=== PATIENT | male | born 1965 | race Hispanic/Latino ===

== ENCOUNTER 2021-07-23 14:38 | Emergency (ER) | payer SELFPAY ==
--- NOTE | 2021-07-23 17:15 | XRay Report ---
CHEST 2 VIEWS INDICATION / CLINICAL INFORMATION: eval for pulm edema. COMPARISON: None available. FINDINGS: SUPPORT DEVICES: None. HEART / MEDIASTINUM: No significant abnormality. LUNGS / PLEURA: No significant pulmonary or pleural abnormality. No pneumothorax. ADDITIONAL FINDINGS: No significant additional findings. IMPRESSION: 1. No acute findings. Signer Name: Paulie Sanchez MD Signed: 07/23/2021 5:10 PM Workstation Name: [id number]
[2021-07-23 17:33] LABS: Basophils # (Auto) 0.1 K/mm3 (0.0-0.1); Basophils % (Auto) 0.6 % (0.0-1.8); Eosinophils # (Auto) 0.2 K/mm3 (0.0-0.4); Eosinophils % (Auto) 1.6 % (0.0-4.3); Hematocrit 45.7 % (35.5-45.6); Hemoglobin 14.8 gm/dl (11.8-15.2); Lymphocytes # (Auto) 2.2 K/mm3 (1.2-5.4); Lymphocytes % (Auto) 22.5 % (13.4-35.0); Mean Corpuscular HGB Conc 33 % (32-34); Mean Corpuscular Volume 87 fl (84-94); Monocytes # (Auto) 0.6 K/mm3 (0.0-0.8); Monocytes % (Auto) 6.1 % (0.0-7.3); Platelet Count 223 K/mm3 (140-440); Red Blood Count 5.26 M/mm3 (3.65-5.03); Red Cell Distribution Width 14.2 % (13.2-15.2)
[2021-07-23 17:45] LABS: Alanine Aminotransferase 19 units/L (7-56); Albumin 3.2 g/dL (3.9-5); BUN/Creatinine Ratio 14; Blood Urea Nitrogen 24 mg/dL (9-20); Calcium 8.5 mg/dL (8.4-10.2); Hemolysis Index 16
[2021-07-23 17:56] LABS: Chol/HDL Ratio 5.12 %; HDL Cholesterol 40 mg/dL (40-59); LDL Cholesterol,Direct TNR mg/dL (50-130)
--- NOTE | 2021-07-23 17:56 | Emergency Department Report ---
ED Dizziness HPI - General Chief Complaint: Dizziness Stated Complaint: DIZZINESS Time Seen by Provider: 07/23/21 16:09 Source: patient, EMS Mode of arrival: Stretcher Limitations: No Limitations - History of Present Illness Initial Comments: 6-year-old male here with complaint possible panic attack. Patient states that while he was typing on a computer very anxious panicked developed numbness and tingling in his hands had a short episode of some shortness of breath. He denies any complaints now and states he feels improved. He states he knows his blood sugar is elevated as he was eating rice with his grandchildren. He denies any chest pain or shortness of breath at this time and also states that he has no numbness or tingling at this time. He has had right leg swelling for a while and notes history of prior bilateral DVTs and states he has been off Eliquis for some months. He notes his right leg has been swollen for over a month. - Related Data Previous Rx's Medication Instructions Recorded Last Taken Type Apixaban [Eliquis] 5 mg PO BID 30 Days #73 tablet 07/23/21 Unknown Rx metFORMIN [Glucophage] 500 mg PO BID 30 Days #60 tablet 07/23/21 Unknown Rx Allergies Allergy/AdvReac Type Severity Reaction Status Date / Time amlodipine Allergy Swelling Verified 07/23/21 16:25 amoxicillin Allergy Unknown Verified 07/23/21 14:44 insulin detemir Allergy Rash Verified 07/23/21 16:25 ED Review of Systems ROS: Stated complaint: DIZZINESS Other details as noted in HPI Constitutional: denies: chills, fever Eyes: denies: eye pain, eye discharge, vision change ENT: denies: ear pain, throat pain Respiratory: denies: cough, shortness of breath, wheezing Cardiovascular: denies: chest pain, palpitations Endocrine: no symptoms reported Gastrointestinal: denies: abdominal pain, nausea, diarrhea Genitourinary: denies: urgency, dysuria Musculoskeletal: as per HPI Skin: denies: rash, lesions Neurological: numbness, paresthesias. denies: headache, weakness Psychiatric: denies: anxiety, depression Hematological/Lymphatic: denies: easy bleeding, easy bruising ED Past Medical Hx - Past Medical History Previous Medical History?: Yes Hx Hypertension: Yes Hx Diabetes: Yes Hx COPD: Yes Additional medical history: ANXIETY, SLEEP APNEA, BLOOD CLOTS - Social History Smoking Status: Former Smoker Substance Use Type: Marijuana - Medications Home Medications: Home Medications Medication Instructions Recorded Confirmed Last Taken Type Apixaban [Eliquis] 5 mg PO BID 30 Days #73 tablet 07/23/21 Unknown Rx metFORMIN [Glucophage] 500 mg PO BID 30 Days #60 tablet 07/23/21 Unknown Rx ED Physical Exam - General Limitations: No Limitations General appearance: alert, in no apparent distress - Head Head exam: Present: atraumatic, normocephalic - Eye Eye exam: Present: normal appearance - ENT ENT exam: Present: mucous membranes moist - Neck Neck exam: Present: normal inspection - Respiratory Respiratory exam: Present: normal lung sounds bilaterally. Absent: respiratory distress - Cardiovascular Cardiovascular Exam: Present: regular rate, normal rhythm. Absent: systolic murmur, diastolic murmur, rubs, gallop - GI/Abdominal GI/Abdominal exam: Present: soft, normal bowel sounds - Rectal Rectal exam: Present: deferred - Extremities Exam Extremities exam: Present: other (Lower extremity edema worse on the right than the left) - Back Exam Back exam: Present: normal inspection - Neurological Exam Neurological exam: Present: alert, oriented X3 - Psychiatric Psychiatric exam: Present: normal affect, normal mood - Skin Skin exam: Present: warm, dry, intact, normal color ED Course Vital Signs 07/23/21 07/23/21 07/23/21 14:40 14:43 16:31 Temperature 97.3 F L 98.6 F Pulse Rate 105 H Respiratory 18 Rate Blood Pressure Blood Pressure 175/115 [Left] Blood Pressure [Right] O2 Sat by Pulse 97 97 Oximetry 07/23/21 07/23/21 07/23/21 16:34 16:36 16:46 Temperature Pulse Rate 94 H 96 H Respiratory 25 H 22 Rate Blood Pressure 193/124 Blood Pressure [Left] Blood Pressure 193/124 [Right] O2 Sat by Pulse 96 96 96 Oximetry 07/23/21 07/23/21 07/23/21 17:00 18:17 18:30 Temperature Pulse Rate 105 H 94 H Respiratory 27 H 22 Rate Blood Pressure 193/124 189/115 179/119 Blood Pressure [Left] Blood Pressure [Right] O2 Sat by Pulse 97 97 96 Oximetry 07/23/21 07/23/21 07/23/21 18:46 20:50 22:18 Temperature Pulse Rate 93 H 119 H 111 H Respiratory 25 H 19 18 Rate Blood Pressure 179/119 Blood Pressure [Left] Blood Pressure 172/108 173/116 [Right] O2 Sat by Pulse 97 95 92 Oximetry 07/23/21 23:20 Temperature Pulse Rate 100 H Respiratory 18 Rate Blood Pressure Blood Pressure [Left] Blood Pressure 154/82 [Right] O2 Sat by Pulse 95 Oximetry - Reevaluation(s) Reevaluation #1: 07/23/21 18:03 And is noted to have a DVT that appears chronic from the femoral to the lower vein. 07/23/21 23:29 Patient DVT is chronic as he does note that he had previous DVT in the leg in the same distribution as current. Patient was given some fluids and mag for mild tachycardia his heart rate has improved and EKG no longer shows prolonged QTC. Given this plan to discharge with Metformin Eliquis and patient follow-up with primary care in a few days ED Medical Decision Making - Lab Data Result diagrams: 07/23/21 17:01 07/23/21 19:38 - EKG Data -: EKG Interpreted by Me Rate: tachycardia No standard instances Heart block present: 1st Degree Qtc: prolonged - EKG Data 07/23/21 23:39 P EKG performed at 2314 demonstrates sinus tachycardia at 104 with prolonged NC but no longer having prolonged QTC. - Radiology Data Radiology results: report reviewed, image reviewed - Medical Decision Making 56-year-old male here with complaint of numbness and tingling in his hands. This has resolved plan for further work-up for lower leg swelling, dizziness will obtain basic labs chest x-ray and reassess. Critical care attestation.: If time is entered above; I have spent that time in minutes in the direct care of this critically ill patient, excluding procedure time. ED Disposition Clinical Impression: Paresthesia and pain of both upper extremities, Hyperglycemia, DVT (deep venous thrombosis) Disposition: 01 HOME / SELF CARE / HOMELESS Is pt being admited?: No Does the pt Need Aspirin: No Condition: Stable Instructions: Paresthesia, Hyperglycemia, Kaqa-ao-Vust, Deep Vein Thrombosis Additional Instructions: Please call Dr. Latham's office if you need a Primary care doctor. If any of your symptoms worsen or return please come back to the ER. Prescriptions: Apixaban [Eliquis] 5 mg PO BID 30 Days #73 tablet metFORMIN [Glucophage] 500 mg PO BID 30 Days #60 tablet Referrals: PRIMARY CAREMD [Primary Care Provider] - 3-5 Days ROSY LATHAM MD [Referring] - 3-5 Days Time of Disposition: 23:36
--- NOTE | 2021-07-23 18:12 | Vascular Lab Report ---
DUPLEX DOPPLER LOWER EXTREMITY VEINS, RIGHT INDICATION / CLINICAL INFORMATION: hx of dvt; off eliquis. TECHNIQUE: Duplex doppler imaging was performed through the veins of the right lower extremity using venous comp ression and other maneuvers. COMPARISON: None available. FINDINGS: RIGHT COMMON FEMORAL VEIN: Nonocclusive. RIGHT FEMORAL VEIN: Nonocclusive. RIGHT POPLITEAL VEIN: Nonocclusive. RIGHT CALF VEINS: Not visualized. ADDITIONAL FINDINGS: None. IMPRESSION: 1. Nonocclusive right lower extremity DVT. This is most likely chronic. No occlusive DVT is seen. Signer Name: Jeremy Mesa MD Signed: 07/23/2021 6:07 PM Workstation Name: [id number]
--- NOTE | 2021-07-23 18:34 | Cat Scan Report ---
CT HEAD WITHOUT CONTRAST INDICATION / CLINICAL INFORMATION: dizziness; numbness. TECHNIQUE: All CT scans at this location are performed using CT dose reduction for ALARA by means of automated e xposure control. COMPARISON: None available. FINDINGS: HEMORRHAGE: No evidence of intracranial hemorrhage or extra-axial fluid collection. EXTRA-AXIAL SPACES: Cortical sulci, sylvian fissures and basilar cisterns have an unremarkable appear ance. VENTRICULAR SYSTEM: The third and lateral ventricles are of normal size and configuration. CEREBRAL PARENCHYMA: Small focus of decreased brain parenchymal attenuation the region of the anterio r limb of the internal capsule on the left could represent a dilated perivascular space or remote sma ll deep infarction. Brain parenchymal attenuation is otherwise normally maintained. MIDLINE SHIFT OR HERNIATION: There is no mass effect. CEREBELLUM / BRAINSTEM: Brainstem and cerebellum have an unremarkable appearance. MIDLINE STRUCTURES:No abnormalities of the pituitary gland or pineal region are identified. INTRACRANIAL VESSELS: Calcified atherosclerotic plaque is observed along the course of the cavernous segments of both internal carotid arteries as well as at the distal left vertebral artery. This is a manifestation of premature intercranial atherosclerosis in this 56-year-old individual. ORBITS: visualized portions of the orbits have an unremarkable appearance. SOFT TISSUES of HEAD: No significant abnormality. CALVARIUM: Evaluation of bone windows reveals no abnormalities. PARANASAL SINUSES / MASTOID AIR CELLS: Visualized portions of the paranasal sinuses are free from inf lammatory mucosal disease. Mastoid air cells are normally pneumatized. ADDITIONAL FINDINGS: None. IMPRESSION: 1. No acute intracranial abnormality. 2. There is evidence of intracranial atherosclerotic disease manifest by calcified plaque along the c ourse of the internal carotid arteries and at the distal left vertebral artery. 3. dilated perivascular space versus remote small deep infarction anterior limb internal capsule on t he left. Signer Name: Maycol Ramírez MD Signed: 07/23/2021 6:30 PM Workstation Name: [id number]
[2021-07-23] MEDS ORDERED: APIXABAN 5 MG TAB PO ONE (19:35)
[2021-07-23 19:57] LABS: INR 0.93 (0.87-1.13)
[2021-07-23 19:58] LABS: Partial Thromboplastin Time 27.5 Sec. (24.2-36.6)
[2021-07-23] MEDS ORDERED: MAGNESIUM SULFATE 1 GM in SODIUM CHLORIDE 0.9% 50 ML IV ONE (20:45)
[2021-07-23] MEDS ORDERED: SODIUM CHLORIDE 0.9% 500 ML 500 ML IV ONE (20:45)
[2021-07-23 23:21] VITALS: BP 154/82
--- NOTE | 2021-07-24 17:33 | Electrocardiograph Report ---
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
--- NOTE | 2021-07-24 17:34 | Electrocardiograph Report ---
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
== END 2021-07-24 00:15 | disposition home or self-care (01) ==
LOC: ED 14:38
DX: I82.409 Acute embolism and thrombosis of unspecified deep veins of unspecified lower extremity (principal); I10 Essential (primary) hypertension; J44.9 Chronic obstructive pulmonary disease, unspecified; F12.10 Cannabis abuse, uncomplicated; E11.65 Type 2 diabetes mellitus with hyperglycemia
CPT/HCPCS: 36415; 70450; 71046; 80053; 80061; 82565; 82962; 83735; 83880; 84484; 85025; 85610; 85730; 93005; 93971; 99285; J3475; J7040